=== PATIENT | male | born 1950 | race Caucasian/White ===

== ENCOUNTER 2022-02-03 08:33 | Outpatient (RCR) | payer MEDICARE, OTHER, SELFPAY ==
[2022-02-03 09:03] VITALS: BP 138/93; PULSE 82; TEMP 35.5; BMI 31.1
--- NOTE | 2022-02-03 11:20 | PCM.WC.HP ---
History of Present Illness Date of Service: 02/03/22 Chief Complaint: Follow-up left lower leg chronic wounds History of Wound: 71-year-old white male with history of atrial fibs on Xarelto and Lasix as needed. Develops on and off blisters on his left lower leg that open and close chronically. He was referred here by his [facility] doctor. At this time the wounds are closed but he does show a lot of stasis dermatitis and edema. He states that no one ever told him about that and he has had this discoloration in his legs for years. He is expected to have a right total knee replacement this February wonders if he can wait till after. Patient would prefer to go to [facility] facilities. We will refer patient back to Dr. Moore of [facility]. [facility] Medical History Atrial fibrillation Cancer Edema of both lower extremities Stasis dermatitis Venous insufficiency (chronic) (peripheral) Home Medications furosemide 20 mg tablet (Lasix) 20 mg PO BID 02/03/22 [History Last Taken Unknown] rivaroxaban 2.5 mg tablet (Xarelto) 2.5 mg PO BID 02/03/22 [History Last Taken Unknown] Allergy/AdvReac Type Severity Reaction Status Date / Time Hiesdua-CSO-MlY Reductase AdvReac Unknown Nausea Verified 02/03/22 09:29 Inhibitor acetaminophen [From Vicodin] AdvReac Nausea Verified 02/03/22 09:29 hydrocodone [From Vicodin] AdvReac Nausea Verified 02/03/22 09:29 ROS Constitutional Constitutional: Reports systems reviewed and no addt'l complaints, except as documented Eyes Eyes: Reports systems reviewed and no addt'l complaints, except as documented ENT HEENT: Reports systems reviewed and no addt'l complaints, except as documented Cardiovascular Cardiovascular: Reports systems reviewed and no addt'l complaints, except as documented Respiratory/Chest Respiratory/Chest: Reports systems reviewed and no addt'l complaints, except as documented Gastrointestinal Gastrointestinal: Reports systems reviewed and no addt'l complaints, except as documented Genitourinary Genitourinary: Reports systems reviewed and no addt'l complaints, except as documented Musculoskeletal Musculoskeletal: Reports systems reviewed and no addt'l complaints, except as documented Integumentary Integumentary: Reports other Details: Swelling bilateral lower legs with discoloration and on and off open wounds to both lower legs Neurologic Neurologic: Reports systems reviewed and no addt'l complaints, except as documented Psychiatric Psychiatric: Reports systems reviewed and no addt'l complaints, except as documented Endocrine Endocrinology: Reports systems reviewed and no addt'l complaints, except as documented Hematologic/Lymphatic Hematologic/Lymphatic: Reports systems reviewed and no addt'l complaints, except as documented Allergic/Immunologic Allergic/Immunologic: Reports systems reviewed and no addt'l complaints, except as documented Vital Signs Vital Signs Vital Signs: 02/03/22 09:03 Temperature 96 F L Temperature Source Temporal Pulse Rate 82 Blood Pressure 138/93 H Blood Pressure Mean 108 Blood Pressure Source Monitor Weight Weight: 243 lb Body Mass Index (BMI) 31.1 Physical Exam Const oriented x3 General Appearance: cooperative Exam Limitations: no limitations HEENT normocephalic Head and Scalp: normal to inspection Face and Sinus: normal facial exam Nose: external nose normal General Ear: hearing grossly impaired External Ear: external ears normal Mouth: oral and palatal mucosa normal Eyes PERRL General Eye: normal appearance of both eyes Neck full ROM General: normal visual inspection Resp normal respiratory effort Effort and Inspection: able to speak in complete sentences Auscultation: clear to auscultation bilaterally Cardio Cardio Narrative: Irregular heartbeat Jugular Venous Distention: Negative for JVD Palpation: normal PMI Rate: bradycardia Rhythm: abnormal rhythm Bruits: Negative for carotid bruit GI Auscultation: normoactive bowel sounds Palpation: soft and no hepatosplenomegaly external exam normal Back/Spine Cervical Spine: cervical ROM normal Thoracic Spine / Upper Back: normal to inspection Lumbar Spine / Lower Back: normal to inspection Extremity normal to inspection General Extremity: normal exam except as noted Skin no rashes or lesions noted Neuro oriented x3 Psych Appearance: grossly normal Speech: normal speech Thought Content: normal thought content Judgement: judgement good Debridement Note Debridement Note No debridement was completed: No debridement was completed today Post-Debridement Measurements and Additional Note: Post-Debridement Measurements/Treatment WC - Nurse 1 - General Ulcer Assessment Start: 02/03/22 08:27 Freq: Status: Active Protocol: PURA Activity Type Activity Date Activity User E-sign Co-sign Detail Recorded Client Recorded Date Recorded By Document 02/03/22 09:03 BOONE [id number] 02/03/22 09:19 AK 02/03/22 09:03 - Today's Visit Information Type of service Initial Visit Arrival Mode Ambulatory Patient Identification Verified (Name & Yes ) Patient Requires Transmission-Based No Precautions Safety Precautions NA Height and Weight Height 6 ft 2 in Weight 243 lb Weight in Pounds 243.0 lbs Body Mass Index (BMI) 31.1 BMI Classification Obese BSA - Cj 2.36 Vital Signs Temperature (97.8 F-99.1 F) 96 F L Temperature Source Temporal Pulse Rate (60-100) 82 Pulse Location Monitor Blood Pressure (90/60-120/80) 138/93 H Blood Pressure Mean 108 Source Monitor History Since Last Visit- (Skip if this is Patient's initial visit) Left Footwear Regular Shoe Right Footwear Regular Shoe Pain Scale: 0-10 Numeric Is Patient Pain Free? Yes - Nurse 1 - General Ulcer Measurement Start: 02/03/22 08:27 Freq: Status: Active Protocol: Activity Type Activity Date Activity User E-sign Co-sign Detail Recorded Client Recorded Date Recorded By Document 02/03/22 09:03 MD [id number] 02/03/22 09:19 MD 02/03/22 09:03 Wound Center Nurse 1 Right Calf (cm) 41 Right Ankle (cm) 29 Left Calf (cm) 42 Left Ankle (cm) 26 - Nurse 2 - General Ulcer CM Notes Start: 02/03/22 08:27 Freq: Status: Active Protocol: Activity Type Activity Date Activity User E-sign Co-sign Detail Recorded Client Recorded Date Recorded By Document 02/03/22 09:32 [id number] 02/03/22 09:33 MW 02/03/22 09:32 Pain Scale: 0-10 Numeric Is Patient Pain Free? Yes Assessment/Plan Assessment/Plan (1) Venous insufficiency (chronic) (peripheral): CODE(S): I87.2 - Venous insufficiency (chronic) (peripheral) PLAN: Refer patient to Dr. Moore a peripheral vascular doctor at the [facility] Patient may follow-up as needed (2) Atrial fibrillation: CODE(S): I48.91 - Unspecified atrial fibrillation (3) Edema of both lower extremities: CODE(S): R60.0 - Localized edema
== END 2022-02-08 14:50 | disposition home or self-care (01) ==
LOC: WC 08:33
PROVIDERS: PCP Internal Medicine; Visit Provider Nurse Practitioner
DX: I87.2 Venous insufficiency (chronic) (peripheral) (principal); I48.91 Unspecified atrial fibrillation; R60.0 Localized edema; Z79.01 Long term (current) use of anticoagulants
CPT/HCPCS: 99203; G0463

== ENCOUNTER 2023-09-13 10:40 | Emergency (ER) | payer MEDICARE, OTHER, SELFPAY ==
[2023-09-13 10:41] VITALS: BP 120/99; PULSE 60; RESP 15; TEMP 36.2; O2SAT 99
[2023-09-13 10:46] VITALS: BMI 29.9
--- NOTE | 2023-09-13 11:05 | CT_ITS ---
STUDY: CT BRAIN WITHOUT CONTRAST REASON FOR EXAM: Male, 73 years old. Dizziness RADIATION DOSAGE (If Supplied By Facility): CTDIvol = ( 44.99 ) mGy, DLP = ( 846.73 ) mGycm TECHNIQUE: Transaxial CT imaging of the brain was performed without administration of intravenous contrast material. Individualized dose optimization techniques were used for this CT. COMPARISON: No relevant priors. FINDINGS: Normal soft tissue structures. Normal calvarium. There is mild cerebral atrophy with widening of the extra-axial spaces and ventricular dilatation. There are areas of decreased attenuation within the white matter tracts of the supratentorial brain, consistent with microvascular disease changes. Normal basal ganglia and thalami. Normal brainstem. Normal cerebellum. There is no intracranial hemorrhage. There are no findings of an acute ischemic infarction. Normal visualized paranasal sinuses. CT/Brain/Head without Contrast IMPRESSION: Chronic involutional changes of the brain. Electronically Signed: Edgardo Bañuelos MD at 11:44 EDT ,
--- NOTE | 2023-09-13 11:05 | EKG12_ITS ---
Test Reason : DIZZYNESS Blood Pressure : / mmHG Vent. Rate : 069 BPM Atrial Rate : 000 BPM P-R Int : 000 ms QRS Dur : 102 ms QT Int : 442 ms P-R-T Axes : 000 025 030 degrees QTc Int : 473 ms Atrial fibrillation with premature ventricular or aberrantly conducted complexes Incomplete right bundle branch block Abnormal ECG Confirmed by SKYE GANDHI, JOSE FRANCISCO ([id number]), material expeditor MOHAN BAKER ([id number]) on 09/14/2023 10:18:09 AM Referred By: Confirmed By:JOSE FRANCISCO CHEUNG MD
--- NOTE | 2023-09-13 11:07 | EX.ED.DYSGE1 ---
HPI History of Present Illness Chief Complaint: Dizziness Narrative Narrative: 73-year-old male presents with lightheadedness and dizziness that has had since this morning. He states he had an episode like this years ago, he was found to have his electrolytes off and adjusted his medications. He has past medical history of atrial fibrillation and is on Xarelto. He states that he woke up around 1230 and felt little dizzy but not necessarily nauseated. This was approximately 10-1/2 hours ago. He intermittently awoken feels like his equilibrium is off. He states he has a slight headache. It is worse with standing when he feels like he is walking more to the right and has an unsteady gait. Feels like he is going to fall. 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 [facility] Medical History Edema of both lower extremities Venous insufficiency (chronic) (peripheral) Stasis dermatitis Atrial fibrillation Cancer Home Medications ?Medication ?Instructions ?Recorded ?Last Taken ?Type furosemide 20 mg tablet (Lasix) 20 mg PO BID 02/03/22 Unknown History rivaroxaban 2.5 mg tablet (Xarelto) 2.5 mg PO BID 02/03/22 Unknown History Allergy/AdvReac Type Severity Reaction Status Date / Time [id number] Reductase AdvReac Unknown Nausea Verified 09/13/23 10:46 Inhibitor acetaminophen (From Vicodin) AdvReac Nausea Verified 09/13/23 10:46 hydrocodone (From Vicodin) AdvReac Nausea Verified 09/13/23 10:46 Social History Smoking Status: Former smoker ROS ROS ED ROS Narrative Constitutional: No fever, no chills. HEENT: No sore throat. No neck pain. No loss of vision. No rhinorrhea. Cardiovascular: No chest pain. No palpitations. No pedal edema. Respiratory: No cough, no shortness of breath. Abdominal: No abdominal pain. Occasional nausea. No vomiting. Chronic diarrhea. Genitourinary: No dysuria. No hematuria. Musculoskeletal: No myalgias. No arthralgias. Neurologic: No headaches. Positive lightheadedness and dizziness. Feels off balance/loss of equilibrium. Skin: No rash. No change in color. Psychiatric: No depression. No anxiety. EXAM Physical Exam Narrative Exam Narrative: Afebrile. Vital signs noted. HEENT: Normocephalic. Atraumatic. PERRL, EOMI. Neck soft and supple. No point tenderness or step off. Cardiovascular: Regular rate and rhythm. No murmurs, rubs, or gallops appreciated. Respiratory: No tachypnea. Lungs clear to auscultation bilaterally. Gastrointestinal: Abdomen soft, nontender, with normoactive bowel sounds. No rebound or guarding. Neurological: Awake. Alert. Nonfocal, nonlateralizing. NIH stroke scale 0. Cerebellar functioning normal as tested. Skin: No rash. Normal color. No pallor. Musculoskeletal: No pedal edema. Full range of motion extremities. Const Vital Signs: 09/13/23 10:41 09/13/23 11:11 Temperature 97.1 F L Temperature Source Temporal Pulse Rate 60 Pulse Rate [Lying] 65 Pulse Rate [Sitting (for 1 minute prior to obtaining)] 72 Pulse Rate [Standing (for 1 minute prior to obtaining)] 60 Respiratory Rate 15 Blood Pressure 120/99 H Blood Pressure [Lying] 114/74 Blood Pressure [Sitting (for 1 minute prior to obtaining)] 125/78 H Blood Pressure [Standing (for 1 minute prior to obtaining)] 114/65 Blood Pressure Mean 106 Blood Pressure Mean [Lying] 87 Blood Pressure Mean [Sitting (for 1 minute prior to obtaining)] 93 Blood Pressure Mean [Standing (for 1 minute prior to obtaining)] 81 Pulse Ox 99 Oxygen Delivery Method Room Air MDM MDM MDM Narrative Medical decision making narrative: In the differential diagnosis is orthostatic hypotension versus benign positional vertigo versus cerebellar stroke. I do not feel stroke team needs to be activated as he awoke at 1230 this morning with it, and he has an NIH stroke scale of 0. Additionally, he is not a TNK candidate as he takes Xarelto. Comprehensive workup was pursued. I will check his CBC and CMP for electrolyte imbalance. I have low suspicion for ACS but single troponin will be obtained as well as EKG. Orthostatics will also be checked. I will also look for occult infection as the cause of his lightheadedness and dizziness with a chest x-ray to rule out pneumonia and a urinalysis to rule out UTI. Chest x-ray in 1 view obtained and interpreted by myself independently as no pneumothorax, no evidence of pneumonia. I reviewed the radiology report which confirms my independent interpretation. Additionally, CT of the brain was obtained and there is no evidence of acute intracranial hemorrhage or mass, no acute process. EKG was obtained and interpreted by myself independently as atrial fibrillation with PVC at [address] changes. No STEMI. He is rate controlled with his atrial fibrillation. I reviewed his laboratory work and he has normal white count of 6.5, hemoglobin 12.1 with hematocrit 36.1, platelet count low at 127. There are no prior labs with which to compare, but I do not feel he requires platelet transfusion. His electrolyte panel is grossly unremarkable with a sodium normal at 138 potassium 4.2, chloride 102, BUN of 14 and creatinine 0.96. Glucose is appropriately elevated/slightly elevated at 161 but he has a normal anion gap of 8. AST low at 14 which I think is nonspecific as well as ALT of 11. Alk phos normal at 66. High-sensitivity troponin is 4. I do not feel that he requires serial enzymes. Urinalysis obtained and is negative for infection. I reviewed the orthostatics which were also negative. After 1 L of normal saline, he feels improved and was able to ambulate. I did discuss with him the possibility of observation for placement in rehab as he stated earlier that he felt unsafe at home, but in discussion with the patient and his , he now feels comfortable being discharged to follow-up with his primary care provider and his outpatient physicians. I do feel he can be discharged to follow-up. I do not feel that he needs to be admitted and as he feels improved and is able to ambulate, I have low suspicion for central nervous process such as stroke or TIA. Disposition is discharged home in stable condition. Return instructions have been reviewed. History & Record Review Discussion w/independent historian: Patient and Family Additional record(s) reviewed:: No prior records Lab Data Attestation: I reviewed the patient's lab results. Labs: Laboratory Results - last 24 hr 09/13/23 09/13/23 11:01 11:30 WBC 6.5 RBC 3.60 L Hgb 12.1 L Hct 36.1 L MCV 100.3 H MCH 33.6 H MCHC 33.5 RDW Std Deviation 48.4 H RDW Coeff of [place] 13.2 Plt Count 127 L MPV 10.2 Immature Gran % (Auto) 0.200 Neut % (Auto) 52.3 Lymph % (Auto) 37.4 [place] % (Auto) 8.1 Eos % (Auto) 1.4 Baso % (Auto) 0.6 Absolute Neuts (auto) 3.4 Absolute Lymphs (auto) 2.44 Nucleated RBC % 0 Sodium 138 Potassium 4.2 Chloride 102 Carbon Dioxide 28.0 Anion Gap 8 BUN 14 Creatinine 0.96 Estim Creat Clear Calc 85.08 Est GFR (MDRD) Af Amer 99 Est GFR (MDRD) Non-Af 82 BUN/Creatinine Ratio 14.7 Glucose 161 H Calcium 9.4 Total Bilirubin 0.90 AST 14 L ALT 11 L Alkaline Phosphatase 66 Troponin I High Sens 4 Total Protein 6.7 Albumin 3.6 Globulin 3.1 Albumin/Globulin Ratio 1.2 Urine Color Yellow Urine Clarity Clear Urine pH 7.0 Ur Specific [place] 1.010 Urine Protein Negative Urine Glucose (UA) Normal Urine Ketones Negative Urine Occult Blood Negative Urine Nitrite Negative Urine Bilirubin Negative Urine Urobilinogen Normal Ur Leukocyte Esterase Negative Urine RBC 0 SEEN Urine WBC 0 SEEN Ur Squamous Epith Cells 0 SEEN Urine Bacteria 0 SEEN Urine Mucus 0 SEEN Radiography Diagnostic Testing: Clinical Impression(s) from Imaging Studies Brain CT 09/13/23 11:05 IMPRESSION: Chronic involutional changes of the brain. Electronically Signed: Edgardo Bañuelos MD at 11:44 EDT , Chest X-Ray 09/13/23 11:30 IMPRESSION: Cardiomegaly with low volume inspiration and no acute or active cardiopulmonary disease. Electronically Signed: Seamus Good MD at 11:42 EDT , Discharge Plan Triage Chief Complaint: Dizziness ED Provider: Darryn Olivo Dx/Rx/DC Orders Clinical Impression: Lightheadedness, Dysequilibrium Instructions: ED Dizziness, Uncertain Cause, ED Near-Fainting, Uncertain Cause Prescriptions: No Action furosemide [Lasix] 20 mg Tablet 20 mg PO BID Xarelto 2.5 mg Tablet 2.5 mg PO BID Primary Care Provider: Sun Burch Referrals: Sun Burch MD [Primary Care Provider] - 3-5 Days if not improving Activity Restrictions/Additional Instructions: Return to the emergency department with new or worsening symptoms. Print Language: Uzbek Disposition Disposition: Home, Self Care
[2023-09-13 11:11] VITALS: BP 114/65; BP 114/74; BP 125/78; PULSE 60; PULSE 65; PULSE 72
[2023-09-13] MEDS: 0.9% Normal Saline (1000mL) 1,000 ML 1000 ML IV (11:21)
[2023-09-13 11:27] LABS: Absolute Lymphocyte Count 2.44 X10^3/uL (0.83-4.51); Absolute Neutrophil Count 3.4 X10^3/uL (2.0-7.7); Basophil# 0.04 X10^3/uL; Basophil% 0.6 % (0-1); Eosinophil# 0.09 X10^3/uL; Eosinophils% 1.4 % (0-5); Hematocrit 36.1 % (40-54); Hemoglobin 12.1 g/dL (13.0-16.5); Lymphocyte # 2.44 X10^3/ul (0.83-4.51); Lymphocyte % 37.4 % (19-41); Mean Corp Hgb Conc 33.5 g/dL (32-36); Mean Corpuscular Hgb 33.6 pg (27.0-32.0); Mean Corpuscular Volume 100.3 fL (80-94); Mean Platelet Vol. 10.2 fl (6.2-12.0); Monocyte# 0.53 X10^3/uL; Monocyte% 8.1 % (0-10); NRBC Flagged by Analyzer 0 % (0-5); Neutrophil # 3.41 X10^3/uL (2.7-7.7); Neutrophil % 52.3 % (47-70); Platelet Count 127 K/mm3 (150-450); RBC Distribution Width CV 13.2 % (11.6-14.6); RBC Distribution Width SD 48.4 fl (35.1-43.9); White Blood Count 6.5 K/mm3 (4.4-11.0)
--- NOTE | 2023-09-13 11:30 | RAD_ITS ---
STUDY: X-RAY CHEST REASON FOR EXAM: Male, 73 years old. Coronary artery disease. TECHNIQUE: Single frontal view of the chest. COMPARISON: None. FINDINGS: Low volume inspiration. There is no demonstrated pleural abnormality. Mild cardiomegaly. Normal mediastinum and giovani. Normal visualized pulmonary arteries. Aortic tortuosity. Normal visualized thoracic spine. Normal visualized ribs, clavicles, and shoulders. No abnormality of the visualized soft tissue structures of the upper abdomen. RAD/Chest 1 View (Portable) IMPRESSION: Cardiomegaly with low volume inspiration and no acute or active cardiopulmonary disease. Electronically Signed: Seamus Good MD at 11:42 EDT ,
[2023-09-13 11:36] LABS: Bacteria 0 SEEN /hpf (None Seen); Mucous, Urine 0 SEEN /hpf (<or=2+); Red Blood Cells-Urine 0 SEEN /hpf (0-5); Squamous Epithelial Cells - UA 0 SEEN /hpf (0-5); White Blood Cells 0 SEEN /hpf (0-5)
[2023-09-13 11:39] LABS: Color, Urine Yellow (Yellow); Glucose, Dipstick Normal (Normal); Ketone-Dipstick Negative (Negative); Leukocyte Esterase-Dipstick Negative /ul (Negative); Nitrite-Dipstick Negative (Negative); Occult Blood-Urine Negative /ul (Negative); Protein-Dipstick Negative (Negative); Urine Bilirubin Dipstick Negative (Negative); Urine Clarity Clear (Clear); Urine Urobilinogen Normal (Normal)
[2023-09-13 11:50] LABS: ALB/GLOB Ratio 1.2 RATIO (0.9-2.4); AST(SGOT) 14 U/L (15-37); Alanine Aminotransfer ALT/SGPT 11 U/L (16-61); Albumin, Serum 3.6 g/dL (3.2-5.0); Alkaline Phosphatase 66 U/L (45-117); Anion Gap 8 (5-15); BUN 14 mg/dL (7-18); BUN/Creat Ratio 14.7 RATIO (10-20); Calcium,Total 9.4 mg/dL (8.5-10.1); Chloride 102 mmol/L (98-107); Creatinine, Serum 0.96 mg/dL (0.70-1.30); EST Glomerular Filtration Rate 82 mL/min (>60); Est Glom Filt Rate - Afr Amer 99 mL/min (>60); Estimated Creatinine Clearance 85.08 ml/min; Globulin 3.1 g/dL (2.2-4.2); Glucose 161 mg/dL (74-106); Potassium 4.2 mmol/L (3.5-5.1); Protein, Total 6.7 g/dL (6.4-8.2); Sodium Level 138 mmol/L (136-145); Troponin-I HS 4 pg/mL (3.0-78.0)
[2023-09-13 12:41] VITALS: BP 134/96; PULSE 82; RESP 18; TEMP 36.4; O2SAT 95
[2023-09-13 12:45] VITALS: BP 134/96; PULSE 82; RESP 16; TEMP 36.4; O2SAT 96
== END 2023-09-13 12:48 | disposition home or self-care (01) ==
PROVIDERS: Emergency Provider Emergency Medicine; PCP Internal Medicine; Visit Provider Emergency Medicine
DX: R42 Dizziness and giddiness (principal); I48.91 Unspecified atrial fibrillation; R26.81 Unsteadiness on feet; I49.3 Ventricular premature depolarization; Z87.891 Personal history of nicotine dependence; Z79.01 Long term (current) use of anticoagulants
CPT/HCPCS: 70450; 71045; 80053; 81001; 84484; 85025; 93005; 96360; 99285; J7030; A4216